=== PATIENT | female | born 1990 | race American Indian/Alaskan Native ===

== ENCOUNTER 2019-11-08 22:49 | Emergency (ER) | payer SELFPAY ==
[2019-11-08 23:44] LABS: Hematocrit 32.7 % (30.3-42.9); Hemoglobin 10.8 gm/dl (10.1-14.3); Mean Corpuscular HGB Conc 33 % (30-34); Mean Corpuscular Volume 93 fl (79-97); Platelet Count 171 K/mm3 (140-440); Red Blood Count 3.51 M/mm3 (3.65-5.03); Red Cell Distribution Width 15.9 % (13.2-15.2)
[2019-11-09 00:08] LABS: Alanine Aminotransferase 10 units/L (7-56); Albumin 4.6 g/dL (3.9-5); BUN/Creatinine Ratio 19; Blood Urea Nitrogen 17 mg/dL (7-17); Calcium 9.4 mg/dL (8.4-10.2); Hemolysis Index 4
[2019-11-09 01:57] LABS: Bilirubin,Urine NEG (Negative); Blood,Urine NEG (Negative); Color,Urine Yellow (Yellow); Mucus,Urine FEW /HPF; Protein,Urine <15 mg/dL mg/dL (Negative); Urobilinogen,Urine < 2.0 mg/dL (<2.0)
[2019-11-09 03:50] LABS: Basophils % (Manual) 0 % (0.0-1.8); Total Cells Counted 100
[2019-11-09 03:51] LABS: Anisocytosis Few; Platelet Estimate Consistent w Auto; Tear Drop Cells Rare
--- NOTE | 2019-11-09 05:39 | Emergency Department Report ---
ED Abdominal Pain HPI - General Chief Complaint: Abdominal Pain Stated Complaint: BACK/BELLY PAIN Time Seen by Provider: 11/09/19 04:08 Source: patient, EMS Mode of arrival: Ambulatory Limitations: Other (Hearing impaired) - History of Present Illness Initial Comments: This is a 28-year-old -Thai female who presents to the emergency room with abdominal pain and back pain for 6 to 7 hours. Patient states she woke up with symptoms. Past medical history of lymphoma cancer and hearing impairment. Patient reports pain is sharp intermittent pain radiating from pelvic to lower back. Patient reports feeling nauseous without vomiting. Patient denies vaginal bleeding, hematuria, fever, chills, urinary frequency, urgency, or dysuria. MD Complaint: abdominal pain Onset/Timin -: hour(s) Location: suprapubic Radiation: back Migration to: no migration Severity: moderate Severity scale (0 -10): 8 Quality: sharp Consistency: intermittent Improves With: nothing Worsens With: nothing Associated Symptoms: nausea. denies: vomiting, diarrhea, fever, chills, constipation, dysuria, hematemesis, hematochezia, melena, hematuria, anorexia, syncope Treatments Prior to Arrival: NSAIDs - Related Data Previous Rx's Medication Instructions Recorded Last Taken Type Phenazopyridine [Pyridium] 200 mg PO TID #6 tab 11/09/19 Unknown Rx Sulfamethoxazole/Trimethoprim 1 each PO BID #10 tablet 11/09/19 Unknown Rx [Bactrim DS TAB] Allergies Allergy/AdvReac Type Severity Reaction Status Date / Time No Known Allergies Allergy Verified 11/08/19 23:09 ED Review of Systems ROS: Stated complaint: BACK/BELLY PAIN Other details as noted in HPI Constitutional: denies: chills, fever ENT: denies: ear pain, throat pain Respiratory: denies: cough, shortness of breath, wheezing Cardiovascular: denies: chest pain, palpitations Gastrointestinal: abdominal pain, nausea. denies: vomiting, diarrhea, constipation, hematemesis, melena, hematochezia Genitourinary: denies: urgency, dysuria, discharge Musculoskeletal: back pain. denies: joint swelling, arthralgia Skin: denies: rash, lesions Neurological: denies: headache, weakness, paresthesias Psychiatric: denies: anxiety, depression ED Past Medical Hx - Past Medical History Previous Medical History?: Yes Hx of Cancer: Yes (lymphoma CA free for 3 years) - Surgical History Past Surgical History?: Yes Additional Surgical History: right foot. Port placed and removed. Abd. - Social History Smoking Status: Never Smoker Substance Use Type: Alcohol - Medications Home Medications: Home Medications Medication Instructions Recorded Confirmed Last Taken Type Phenazopyridine [Pyridium] 200 mg PO TID #6 tab 11/09/19 Unknown Rx Sulfamethoxazole/Trimethoprim 1 each PO BID #10 tablet 11/09/19 Unknown Rx [Bactrim DS TAB] ED Physical Exam - General Limitations: Other General appearance: alert, in no apparent distress - Respiratory Respiratory exam: Present: normal lung sounds bilaterally. Absent: respiratory distress - GI/Abdominal GI/Abdominal exam: Present: soft, normal bowel sounds. Absent: distended, tenderness, guarding, rebound, rigid, organomegaly, mass, hernia - Extremities Exam Extremities exam: Present: normal inspection - Back Exam Back exam: Absent: CVA tenderness (R), CVA tenderness (L) - Neurological Exam Neurological exam: Present: alert, oriented X3, normal gait - Psychiatric Psychiatric exam: Present: normal affect, normal mood - Skin Skin exam: Present: warm, dry, intact, normal color. Absent: rash ED Course Vital Signs 11/08/19 11/09/19 23:19 05:55 Temperature 98.2 F 97.7 F Pulse Rate 92 H 89 Respiratory 16 18 Rate Blood Pressure 117/82 Blood Pressure 126/76 [Left] O2 Sat by Pulse 99 99 Oximetry ED Medical Decision Making - Lab Data Result diagrams: 11/08/19 23:27 11/08/19 23:27 Lab Results 11/08/19 11/08/19 11/08/19 Range/Units 23:27 23:27 23:27 WBC 4.7 (4.5-11.0) K/mm3 RBC 3.51 L (3.65-5.03) M/mm3 Hgb 10.8 (10.1-14.3) gm/dl Hct 32.7 (30.3-42.9) % MCV 93 (79-97) fl MCH 31 (28-32) pg MCHC 33 (30-34) % RDW 15.9 H (13.2-15.2) % Plt Count 171 (140-440) K/mm3 Add Manual Diff Complete Total Counted 100 Seg Neutrophils % Consulting Analyst Seg Neuts % (Manual) 38.0 L (40.0-70.0) % Band Neutrophils % 0 % Lymphocytes % (Manual) 49.0 H (13.4-35.0) % Reactive Lymphs % (Man) 0 % Monocytes % (Manual) 7.0 (0.0-7.3) % Eosinophils % (Manual) 6.0 H (0.0-4.3) % Basophils % (Manual) 0 (0.0-1.8) % Metamyelocytes % 0 % Myelocytes % 0 % Promyelocytes % 0 % Blast Cells % 0 % Nucleated RBC % Not Reportable Seg Neutrophils # Man 1.8 (1.8-7.7) K/mm3 Band Neutrophils # 0.0 K/mm3 Lymphocytes # (Manual) 2.3 (1.2-5.4) K/mm3 Abs React Lymphs (Man) 0.0 K/mm3 Monocytes # (Manual) 0.3 (0.0-0.8) K/mm3 Eosinophils # (Manual) 0.3 (0.0-0.4) K/mm3 Basophils # (Manual) 0.0 (0.0-0.1) K/mm3 Metamyelocytes # 0.0 K/mm3 Myelocytes # 0.0 K/mm3 Promyelocytes # 0.0 K/mm3 Blast Cells # 0.0 K/mm3 WBC Morphology Not Reportable Hypersegmented Neuts Not Reportable Hyposegmented Neuts Not Reportable Hypogranular Neuts Not Reportable Smudge Cells Not Reportable Toxic Granulation Not Reportable Toxic Vacuolation Not Reportable Dohle Bodies Not Reportable Pelger-Huet Anomaly Not Reportable Lorenza Rods Not Reportable Platelet Estimate Consistent w auto Clumped Platelets Not Reportable Plt Clumps, EDTA Not Reportable Large Platelets Not Reportable Giant Platelets Not Reportable Platelet Satelliting Not Reportable Plt Morphology Comment Not Reportable RBC Morphology Not Reportable Dimorphic RBCs Not Reportable Polychromasia Not Reportable Hypochromasia Not Reportable Poikilocytosis Not Reportable Anisocytosis Few Microcytosis Not Reportable Macrocytosis Not Reportable Spherocytes Not Reportable Pappenheimer Bodies Not Reportable Sickle Cells Not Reportable Target Cells Not Reportable Tear Drop Cells Rare Ovalocytes Not Reportable Helmet Cells Not Reportable [place] Bodies Not Reportable [place] Rings Not Reportable [place] Cells Not Reportable Bite Cells Not Reportable Crenated Cell Not Reportable Elliptocytes Rare Acanthocytes (Spur) Not Reportable Rouleaux Not Reportable Hemoglobin C Crystals Not Reportable Schistocytes Not Reportable Malaria parasites Not Reportable [place] Bodies Not Reportable Hem Pathologist Commnt No Sodium 142 (137-145) mmol/L Potassium 4.3 (3.6-5.0) mmol/L Chloride 105.0 (98-107) mmol/L Carbon Dioxide 24 (22-30) mmol/L Anion Gap 17 mmol/L BUN 17 (7-17) mg/dL Creatinine 0.9 (0.7-1.2) mg/dL Estimated GFR > 60 ml/min BUN/Creatinine Ratio 19 % Glucose 89 (65-100) mg/dL Calcium 9.4 (8.4-10.2) mg/dL Total Bilirubin 0.40 (0.1-1.2) mg/dL AST 17 (5-40) units/L ALT 10 (7-56) units/L Alkaline Phosphatase 43 (35-129) units/L Total Protein 7.2 (6.3-8.2) g/dL Albumin 4.6 (3.9-5) g/dL Albumin/Globulin Ratio 1.8 % HCG, Qual Negative (Negative) Urine Color (Yellow) Urine Turbidity (Clear) Urine pH (5.0-7.0) Ur Specific Hall (1.003-1.030) Urine Protein (Negative) mg/dL Urine Glucose (UA) (Negative) mg/dL Urine Ketones (Negative) mg/dL Urine Blood (Negative) Urine Nitrite (Negative) Urine Bilirubin (Negative) Urine Urobilinogen (<2.0) mg/dL Ur Leukocyte Esterase (Negative) Urine WBC (Auto) (0.0-6.0) /HPF Urine RBC (Auto) (0.0-6.0) /HPF U Epithel Cells (Auto) (0-13.0) /HPF Urine Mucus /HPF 11/08/ Range/Units Unknown WBC (4.5-11.0) K/mm3 RBC (3.65-5.03) M/mm3 Hgb (10.1-14.3) gm/dl Hct (30.3-42.9) % MCV (79-97) fl MCH (28-32) pg MCHC (30-34) % RDW (13.2-15.2) % Plt Count (140-440) K/mm3 Add Manual Diff Total Counted Seg Neutrophils % Seg Neuts % (Manual) (40.0-70.0) % Band Neutrophils % % Lymphocytes % (Manual) (13.4-35.0) % Reactive Lymphs % (Man) % Monocytes % (Manual) (0.0-7.3) % Eosinophils % (Manual) (0.0-4.3) % Basophils % (Manual) (0.0-1.8) % Metamyelocytes % % Myelocytes % % Promyelocytes % % Blast Cells % % Nucleated RBC % Seg Neutrophils # Man (1.8-7.7) K/mm3 Band Neutrophils # K/mm3 Lymphocytes # (Manual) (1.2-5.4) K/mm3 Abs React Lymphs (Man) K/mm3 Monocytes # (Manual) (0.0-0.8) K/mm3 Eosinophils # (Manual) (0.0-0.4) K/mm3 Basophils # (Manual) (0.0-0.1) K/mm3 Metamyelocytes # K/mm3 Myelocytes # K/mm3 Promyelocytes # K/mm3 Blast Cells # K/mm3 WBC Morphology Hypersegmented Neuts Hyposegmented Neuts Hypogranular Neuts Smudge Cells Toxic Granulation Toxic Vacuolation Dohle Bodies Pelger-Huet Anomaly Lorenza Rods Platelet Estimate Clumped Platelets Plt Clumps, EDTA Large Platelets Giant Platelets Platelet Satelliting Plt Morphology Comment RBC Morphology Dimorphic RBCs Polychromasia Hypochromasia Poikilocytosis Anisocytosis Microcytosis Macrocytosis Spherocytes Pappenheimer Bodies Sickle Cells Target Cells Tear Drop Cells Ovalocytes Helmet Cells [place] Bodies [place] Rings [place] Cells Bite Cells Crenated Cell Elliptocytes Acanthocytes (Spur) Rouleaux Hemoglobin C Crystals Schistocytes Malaria parasites Bang Bodies Hem Pathologist Commnt Sodium (137-145) mmol/L Potassium (3.6-5.0) mmol/L Chloride (98-107) mmol/L Carbon Dioxide (22-30) mmol/L Anion Gap mmol/L BUN (7-17) mg/dL Creatinine (0.7-1.2) mg/dL Estimated GFR ml/min BUN/Creatinine Ratio % Glucose (65-100) mg/dL Calcium (8.4-10.2) mg/dL Total Bilirubin (0.1-1.2) mg/dL AST (5-40) units/L ALT (7-56) units/L Alkaline Phosphatase (35-129) units/L Total Protein (6.3-8.2) g/dL Albumin (3.9-5) g/dL Albumin/Globulin Ratio % HCG, Qual (Negative) Urine Color Yellow (Yellow) Urine Turbidity Clear (Clear) Urine pH 5.0 (5.0-7.0) Ur Specific Hall 1.024 (1.003-1.030) Urine Protein <15 mg/dl (Negative) mg/dL Urine Glucose (UA) Neg (Negative) mg/dL Urine Ketones Neg (Negative) mg/dL Urine Blood Neg (Negative) Urine Nitrite Neg (Negative) Urine Bilirubin Neg (Negative) Urine Urobilinogen < 2.0 (<2.0) mg/dL Ur Leukocyte Esterase Lg (Negative) Urine WBC (Auto) 21.0 H (0.0-6.0) /HPF Urine RBC (Auto) 7.0 (0.0-6.0) /HPF U Epithel Cells (Auto) 2.0 (0-13.0) /HPF Urine Mucus Few /HPF - Medical Decision Making This is a 28-year-old female who presents to the ER with pelvic pain radiating to her back for 6 hours. Vitals are stable and patient in no acute distress. Past medical history of hearing impaired and lymphoma. Work-up: CBC, CMP, urinalysis, urine test. Urinalysis large leukocyte Estrace and elevated WBCs. All other labs are unremarkable. Abdomen is nontender on exam. There is low suspicion of an acute abdomen, appendicitis, gastroenteritis, or infection. Imaging is deferred at this time. Patient will be treated for acute cystitis. Start Bactrim DS and Pyridium. Given strict return instructions. Referral to primary care doctor for continued care. Patient discharged home s table. Critical care attestation.: If time is entered above; I have spent that time in minutes in the direct care of this critically ill patient, excluding procedure time. ED Disposition Clinical Impression: Abdominal pain Qualifiers: Abdominal location: lower abdomen, unspecified Qualified Code(s): R10.30 - Lower abdominal pain, unspecified Back pain Qualifiers: Back pain location: low back pain Chronicity: acute Back pain laterality: bilateral Sciatica presence: without sciatica Qualified Code(s): M54.5 - Low back pain Acute cystitis Qualifiers: Hematuria presence: without hematuria Qualified Code(s): N30.00 - Acute cystitis without hematuria Disposition: TO HOME OR SELFCARE Is pt being admited?: No Condition: Stable Instructions: Urinary Tract Infection in Women (ED), Abdominal Pain (ED) Additional Instructions: Increase fluid intake. Complete full course of antibiotics as prescribed. Follow-up for pending urine culture results in 3 to 5 days. Follow-up with the primary care doctor from the referrals listed or your primary care doctor in 2 to 3 days. Prescriptions: Sulfamethoxazole/Trimethoprim [Bactrim DS TAB] 1 each PO BID #10 tablet Phenazopyridine [Pyridium] 200 mg PO TID #6 tab Referrals: [facility] [Provider Group] - 3-5 Days [facility] [Provider Group] - 3-5 Days FRACISCO MONROY MD [Staff Physician] - 3-5 Days Time of Disposition: 05:43
[2019-11-09 05:56] VITALS: BP 126/76
== END 2019-11-09 06:00 | disposition home or self-care (01) ==
LOC: ED 22:49
DX: N30.00 Acute cystitis without hematuria (principal)
CPT/HCPCS: 36415; 80053; 81001; 84703; 85007; 85025; 87086